=== PATIENT | female | born 1985 | race Caucasian/White ===

== ENCOUNTER 2024-01-07 09:52 | Day surgery (SDC) | payer BC ==
[2024-01-07] MEDS ORDERED: Acetaminophen 500 MG TAB ONE (10:25)
[2024-01-07] MEDS: Acetaminophen 500 MG TAB PO SCH (10:27)
[2024-01-07] MEDS: Iron Sucrose Complex 500 MG in Sodium Chloride 0.9% 250 ML 250 ML IVPB SCH (10:48)
[2024-01-07 16:22] VITALS: BP 101/58; TEMP 98.1
== END 2024-01-07 16:11 | disposition home or self-care (01) ==
LOC: ONC/OP 09:52
PROVIDERS: ATTEND Obstetrics & Gynecology
DX: O99.019 Anemia complicating pregnancy, unspecified trimester (principal); Z3A.00 Weeks of gestation of pregnancy not specified
CPT/HCPCS: 96365; 96366; J1756; J7050